=== PATIENT | male | born 1935 | race Caucasian/White ===

== ENCOUNTER 2022-03-24 11:07 | Emergency (ER) | payer MEDICARE, SELFPAY ==
[2022-03-24 11:08] VITALS: BP 116/63; PULSE 80; RESP 15; TEMP 36.4; O2SAT 98; BMI 28.7
--- NOTE | 2022-03-24 11:42 | ED.VIS.LOWEX ---
HPI History of Present Illness Chief Complaint: Lower Extremity Injury Narrative Narrative: 86-year-old male presenting with right hamstring pain. He states he bent over yesterday and felt kind of a popping tearing feeling in the mid hamstring. He is able to ambulate but states it hurts. He took Tylenol yesterday and this helped. Denies any direct trauma. No numbness or tingling. He states he is driving home to [place] tomorrow and needs something to help with the pain. PFSH PFSH Home Medications cyclobenzaprine 10 mg tablet 10 mg PO BID PRN muscle spasm #10 tabs 03/24/22 [Rx Last Taken Unknown] naproxen 500 mg tablet (Naprosyn) 500 mg PO BID PRN pain #20 tabs 03/24/22 [Rx Last Taken Unknown] Allergy/AdvReac Type Severity Reaction Status Date / Time No Known Allergies Allergy Verified 03/24/22 11:08 ROS ROS ED Constitutional Constitutional ED: Denies chills, fever(s) or sweats Eyes Eyes: Denies blurry vision or change in vision ENT ENT ED: Denies ear pain or sore throat Cardiovascular Cardiovascular: Denies chest pain, palpitations or racing heartbeat Respiratory/Chest Respiratory/Chest: Denies cough, dyspnea or sputum Gastrointestinal Gastrointestinal: Denies abdominal pain, constipation, diarrhea, nausea or vomiting Genitourinary Genitourinary ED: Denies dysuria, hematuria or urinary frequency Musculoskeletal Musculoskeletal: Denies arthralgias, myalgias or neck pain Integumentary Denies abscess, Abrasions or rash Neurologic Neurologic: Denies headache(s), paresthesias or weakness Psychiatric Psychiatric: Denies anxiety, depression, suicidal ideation or suicidal thoughts Endocrine Endocrinology: Denies polydipsia or polyuria EXAM Physical Exam Const Vital Signs: 03/24/22 11:08 Temperature 97.5 F L Temperature Source Temporal Pulse Rate 80 Respiratory Rate 15 Blood Pressure 116/63 Blood Pressure Mean 80 Pulse Ox 98 Oxygen Delivery Method Room Air Positive well nourished General Appearance ED: NAD HEENT Reports moist mucous membranes normocephalic and atraumatic Neck full ROM Chest Wall inspection of chest normal and palpation of chest normal Resp normal respiratory effort Cardio regular rate and regular rhythm GI non-tender Auscultation: normoactive bowel sounds and hyperactive bowel sounds Extremity Extremity Narrative: No direct tenderness to palpation over the right hamstring however when I extend the leg into full extension at the knee he does feel a pulling in the mid hamstring. No bruising or ecchymosis noted. No bony tenderness. Neuro Sensorium / Orientation: alert, oriented to person, oriented to place and oriented to time Motor Exam: strength 5/5 throughout Psych mental status grossly normal Skin no wounds MDM MDM MDM Narrative Medical decision making narrative: Patient likely has a hamstring strain. He request a muscle relaxer so that he can drive back to [place]. I counseled him that he cannot take muscle relaxers and drive. I told him I can give him some Naprosyn and he can take the muscle relaxers when he stops in between driving and he was amenable to this. Patient counseled to get a leg compression and medical supply store but I did supply him with an Tramaine wrap here in the ER. Return precautions discussed. Patient stable for discharge. Impression: 1. Right hamstring strain Lab Data Attestation: I reviewed the patient's lab results. Discharge Plan Triage Chief Complaint: Lower Extremity Injury ED Provider: Sam Roberson Dx/Rx/DC Orders Instructions: ED Muscle Strain, Extremity Prescriptions: New naproxen [Naprosyn] 500 mg tablet 500 mg PO BID PRN (Reason: pain) Qty: 20 0RF cyclobenzaprine 10 mg tablet 10 mg PO BID PRN (Reason: muscle spasm) Qty: 10 0RF Primary Care Provider: NOT,DEFINED Referrals: NOT,DEFINED [Primary Care Provider] - Disposition Disposition: Home, Self Care
== END 2022-03-24 12:13 | disposition home or self-care (01) ==
PROVIDERS: Emergency Provider Student in an Organized Health Care Education/Training Program; Visit Provider Student in an Organized Health Care Education/Training Program
DX: S76.311A Strain of muscle, fascia and tendon of the posterior muscle group at thigh level, right thigh, initial encounter (principal); X58.XXXA Exposure to other specified factors, initial encounter; Y93.89 Activity, other specified
CPT/HCPCS: 99282